=== PATIENT | female | born 1980 | race Two or more races ===

== ENCOUNTER 2021-10-22 17:07 | Emergency (ER) | payer MEDICAID ==
[~2021-10-22] VITALS: Ht 157.5 cm; Wt 89.8 kg
[2021-10-22 17:27] VITALS: BP_SYST 120
--- NOTE | 2021-10-22 17:33 | NUR ---
Patient triaged and placed in waiting room. VSS and patient appears in no acute distress at this time. Accompanied by FAMILY, awaiting available bed, and MD notified of need for MSE.
--- NOTE | 2021-10-22 19:10 | NUR ---
Patient to ER bed H1 to gown for evaluation. Side rails up.
--- NOTE | 2021-10-22 19:11 | NUR ---
Patient BIB by family from home. C/O right arm pain x last night. Patient reported, at work ([employer]), patient moved items and heard pop right arm, pain right upper arm, radiate to right forearm, and tingling and numbness. 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
--- NOTE | 2021-10-22 19:18 | NUR ---
ER Dr. Singh at bedside examining patient.
[2021-10-22] MEDS: KETOROLAC TROMETHAMINE 30 MG VIAL IM ONE (19:46)
--- NOTE | 2021-10-22 20:02 | NUR ---
Returned from radiology, back to [facility].
[2021-10-22] MEDS ORDERED: IBUP-1969 PO (20:47)
--- NOTE | 2021-10-22 20:52 | NUR ---
Dr. Singh at bedside to explain lab results and treatment plans.
[2021-10-22 21:08] VITALS: BP_SYST 120
--- NOTE | 2021-10-22 21:08 | NUR ---
Patient given written and verbal discharge instructions and verbalizes understanding. ER MD discussed with patient the results and treatment provided. Patient in stable condition. ID arm band removed. Rx of Ibuprofen given. Patient educated on pain management and to follow up with PMD. Pain Scale 2/10. Opportunity for questions provided and answered. Medication side effect fact sheet provided.
== END 2021-10-22 21:08 | disposition home or self-care (01) ==
LOC: SED 17:07
DX: M79.601 Pain in right arm (principal); M25.511 Pain in right shoulder; Z79.899 Other long term (current) drug therapy
CPT/HCPCS: 73030; 73080; 81025; 96372; 99284; J1885

== ENCOUNTER 2022-10-18 17:31 | Emergency (ER) | payer MEDICAID ==
[~2022-10-18] VITALS: Ht 157.5 cm; Wt 93.4 kg
[2022-10-18 17:31] VITALS: BP_SYST 115
[~2022-10-18 17:31] MED LIST: IBUP-1969 PO
[2022-10-18] MEDS ORDERED: NACL 0.9% 1,000 ML IV ONE ×2 (18:15→20:30)
[2022-10-18] MEDS ORDERED: ONDANSETRON HCL 4 MG/2 ML VIAL IVP ONE (18:15)
[2022-10-18 18:42] LABS: BASOPHILS % (AUTO) 0.3 % (0.0-2.0); EOSINOPHILS % (AUTO) 0.3 % (0.0-4.0); HEMOGLOBIN 12.9 g/dL (12.0-16.0); LYMPHOCYTES # (AUTO) 0.3 K/uL (1.0-5.5); LYMPHOCYTES % (AUTO) 2.9 % (20.5-51.5); MEAN CORPUSCULAR HEMOGLOBIN 25 pg (27-31); MEAN CORPUSCULAR HGB CONC 33 % (32-36); MEAN CORPUSCULAR VOLUME 77 fL (79.0-98.0); MONOCYTES # (AUTO) 0.3 K/uL (0.0-1.0); MONOCYTES % (AUTO) 2.9 % (1.7-9.3); NEUTROPHILS # (AUTO) 8.3 K/uL (1.8-7.7); NEUTROPHILS % (AUTO) 93.6 % (40.0-70.0); PLATELET COUNT (AUTO) 248 K/uL (130-430); RED BLOOD CELL COUNT(AUTO) 5.08 MIL/uL (4.2-6.2); RED CELL DISTRIBUTION WIDTH 15.2 % (9.0-15.0); WHITE BLOOD COUNT (AUTO) 8.9 K/uL (4.8-10.8)
[2022-10-18 19:00] LABS: CALCIUM 8.8 mg/dL (8.4-11.0); CREATININE 0.81 mg/dL (0.55-1.30)
[2022-10-18 19:06] LABS: ALBUMIN 3.5 g/dL (3.4-4.8); TOTAL BILIRUBIN 0.6 mg/dL (0.0-1.0)
[2022-10-18] MEDS ORDERED: DICYCLOMINE HCL 20 MG/2 ML AMP IM ONE (20:30)
[2022-10-18] MEDS ORDERED: ONDA-8 TL (21:38)
[2022-10-18 22:30] VITALS: BP_SYST 96
== END 2022-10-18 22:30 | disposition home or self-care (01) ==
LOC: SED 17:31
DX: E86.0 Dehydration (principal); A05.9 Bacterial foodborne intoxication, unspecified; R10.84 Generalized abdominal pain; R11.2 Nausea with vomiting, unspecified; R19.7 Diarrhea, unspecified; Z79.899 Other long term (current) drug therapy
CPT/HCPCS: 99284; 96374; 96361; 80053; 83690; 85025; 36415; 96372; J0500; J2405; J7030